=== PATIENT | female | born 1955 | race Caucasian/White ===

== ENCOUNTER 2016-11-07 08:02 | Day surgery (SDC) | payer SELFPAY ==
[~2016-11-07 08:02] MED LIST: Bupivacaine 0.5% 50 ML MDV ONE; Lidocaine 1% with EPINEPHrine 1:100,000 50 ML MDV ONE
[2016-11-07] MEDS ORDERED: Lidocaine 1% 20 ML MDV INJECT ONE (08:15)
[2016-11-07] MEDS ORDERED: Dextrose 5%-Lactated Ringers 1,000 ML IV SCH (08:30)
[2016-11-07] MEDS ORDERED: ceFAZolin 1 GM in Sodium Chloride 0.9% 50 ML IV SCH (10:00)
[2016-11-07] MEDS ORDERED: ceFAZolin 1 GM in Premix Bag 1 BAG IV ONE (10:00)
[2016-11-07] MEDS ORDERED: fentaNYL 100 MCG/2 ML SDV ONE (10:42)
[2016-11-07] MEDS ORDERED: Midazolam 1 MG/ML 2 ML SDV ONE (10:42)
[2016-11-07] MEDS ORDERED: Propofol 200 MG/20 ML SDV ONE ×2 (10:42→12:23)
--- NOTE | 2016-11-07 11:09 | MY ---
EXAM: (Guide Ndl Wire Loc RT) INDICATION: RIGHT BREAST CALCIFCATION R92.01 PROCEDURE: Mammographic guided wire localization of microcalcifications in the 12:00 position of the right breast performed. Procedure and risks discussed with patient agreed to proceed. With the alpha- numeric grid in place in the CC projection the microcalcifications were localized. After sterile prep and local anesthesia localizing needle was placed through the microcalcifications. Satisfactory need le placement was confirmed with a lateral projection view. Localizing wire was then placed and needle removed. The thick portion of the wire is at the microcalcifications. IMPRESSION: Successful mammographically guided wire localization of microcalcifications in the right breast.
[2016-11-07 14:17] VITALS: BP 142/76
--- NOTE | 2016-11-07 14:48 | MY ---
EXAM: (Surgical Specimen Breast) INDICATION: RT BREAST CALCIFICATION, SPECIMEN COMPARISON: Prior studies. FINDINGS: Satisfactory specimen radiograph with microcalcifications and localizing wire centrally wit hin the specimen. Findings were telephoned to the OR by the mammogram technologist.
--- NOTE | 2016-11-13 11:07 | OR ---
DATE OF PROCEDURE: 11/07/2016 PREOPERATIVE DIAGNOSIS: Focal suspicious microcalcifications of right breast. POSTOPERATIVE DIAGNOSIS: Focal suspicious microcalcifications of right breast. PROCEDURE: Excisional biopsy, right breast with preoperative mammographic needle localization ([id number]). ANESTHESIA: Local plus IV sedation. OCULAR PATHOLOGIST: MAXIMO Walker. INDICATION FOR PROCEDURE: This is a 61-year-old female presenting with a newly identified cluster of microcalcifications located in the superior aspect of the right breast. The option of the core biopsy versus a more complete excision of the area, giving this a somewhat more definitive diagnosis, was reviewed with the patient, and she wished to proceed with the excisional approach. Potential risks including bleeding, infection, cosmetic deformity, possible need for additional treatment, if malignancy is identified, were all reviewed with the patient, and she wishes to proceed. DETAILS OF PROCEDURE: The patient was taken to the operating room and placed in a supine position. After successful localization of the area of concern in the right breast, the right breast surrounding these areas were prepped and draped, while the patient received some IV sedation. The optimal point of incision was then identified fluoroscopically and that area was anesthetized with 1% lidocaine mixed with Marcaine. Transversely oriented incision in line with the skin creases was then made and carried down through the skin and subcutaneous tissue. The proximal end of the needle just above the stiffener was then identified and divided, and the tissue around the remaining stiffener needle was then excised and sent for mammographic exam. Adequate removal of the area of calcifications was confirmed. The area of concern was then palpated, and no additional abnormalities were noted. The deep plane of the dissection did not violate the pectoralis major fascia. The incision was then closed with 3-0 and 4-0 Vicryl stitch deep, after hemostasis was obtained, and the skin closed with 4-0 Vicryl subcuticular stitch. Dressing was applied. The patient was taken to the recovery room in satisfactory condition. Nathaniel Loredo MD /[id number]
== END 2016-11-07 14:19 | disposition home or self-care (01) ==
LOC: JP.SDS 08:02
PROVIDERS: ATTEND Surgery
DX: D24.1 Benign neoplasm of right breast (principal)
CPT/HCPCS: 19125; 19281; 76098; 88305; 88342; J2250; J2704; J3010; J7042

== ENCOUNTER 2018-12-01 06:24 | Day surgery (SDC) | payer MEDICARE, BC ==
[2018-12-01] MEDS ORDERED: Bupivacaine 0.5% 30 ML SDV ONE (06:48)
[2018-12-01] MEDS ORDERED: Nozin Nasal Sanitizer NASBOTH ONE (07:00)
[2018-12-01] MEDS ORDERED: Lactated Ringers 1,000 ML IV SCH (07:15)
[2018-12-01] MEDS ORDERED: fentaNYL 100 MCG/2 ML SDV ONE (07:36)
[2018-12-01] MEDS ORDERED: Propofol 200 MG/20 ML SDV ONE (07:36)
[2018-12-01] MEDS ORDERED: Midazolam 1 MG/ML 2 ML SDV ONE (07:36)
[2018-12-01] MEDS: ceFAZolin 1 GM in Premix Bag 1 BAG IV ONE ×2 (08:10→12:12)
[2018-12-01 10:07] VITALS: BP 130/98; PULSE 63
--- NOTE | 2018-12-06 09:33 | OR ---
DATE OF PROCEDURE: 12/01/2018 SURGEON: Brandin Ventura MD PREOPERATIVE DIAGNOSIS: Recurrent left carpal tunnel syndrome. POSTOPERATIVE DIAGNOSIS: Recurrent left carpal tunnel syndrome. PROCEDURE: Left carpal tunnel release. ANESTHESIA: Miki block with sedation. INDICATIONS: Jessie is a very pleasant 63-year-old female with a history of persistent left hand and wrist pain, tingling, and numbness. She has a history of prior carpal tunnel release, but has been experiencing increased symptoms over the past year. Difficulty with cell lead. Pain radiating into the median nerve distribution. Exam with positive Tinel's at the wrist. She now presents for revision, release, and evaluation of the carpal tunnel. Risks, benefits, potential complications of the procedure were discussed. DESCRIPTION OF PROCEDURE: After adequate anesthesia had been obtained, the left hand was prepped and draped in a sterile fashion. Previous incision was noted transversely at the wrist crease. A new incision was made longitudinally from the wrist crease distally in line with the 4th finger. This was carried down through the subcutaneous tissues. Careful dissection was then carried down. A portion of the transverse carpal ligament was encountered. This was very thin, but was intact at this level. This was divided under direct visualization. This was carried down to the level of the wrist crease. A small band at the junction of the transverse ligament and flexor retinaculum was noted. This was divided with the tenotomy scissors. Evaluation of the carpal tunnel contents revealed that the median nerve was significantly compressed throughout the length of the tunnel. Also had the appearance of being is somewhat atrophied. The remainder of the carpal contents were unremarkable. No significant tenosynovitis was noted. There was no extension of flexor muscle into the tunnel. Complete release was confirmed both visually and by palpation proximally and distally. The wound was then irrigated. The skin was then closed using 4-0 nylon in interrupted mattress fashion. Sterile dressing was applied. Skin was infiltrated with Marcaine prior to application of the dressing. She tolerated the procedure well. There were no complications. She was taken from the operating room in stable condition. Brandin Ventura MD /[id number]
== END 2018-12-01 10:25 | disposition home or self-care (01) ==
LOC: JP.SDS 06:24
PROVIDERS: ATTEND Specialist
DX: G56.02 Carpal tunnel syndrome, left upper limb (principal); I10 Essential (primary) hypertension; K21.9 Gastro-esophageal reflux disease without esophagitis; F41.9 Anxiety disorder, unspecified; F32.9 Major depressive disorder, single episode, unspecified
CPT/HCPCS: 36415; 64721; 80048; 85027; A9270; J0690; J2250; J2704; J3010; J3490; J7120

== ENCOUNTER 2020-07-09 21:53 | Emergency (ER) | payer MEDICARE, BC ==
[2020-07-09 22:03] VITALS: BP 113/88; PULSE 93
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
[2020-07-09] MEDS ORDERED: Bacitracin Oint 1 GM U/D Packet TOP ONE (23:43)
[2020-07-09] MEDS ORDERED: Diphtheria,Pertussis(Acell),Tetanus Vaccine 0.5 ML Syringe IM ONE (23:45)
[2020-07-10] MEDS ORDERED: LORazepam 1 MG Tab PO ONE (00:16)
== END 2020-07-10 11:27 | disposition home or self-care (01) ==
LOC: JP.ED 21:53
DX: S61.512A Laceration without foreign body of left wrist, initial encounter (principal); F32.9 Major depressive disorder, single episode, unspecified; Z23 Encounter for immunization; Z79.899 Other long term (current) drug therapy; X78.1XXA Intentional self-harm by knife, initial encounter
CPT/HCPCS: 36415; 80053; 80305; 80307; 84443; 85025; 90471; 90715; 99284; A9270

== ENCOUNTER 2022-08-20 08:39 | Day surgery (SDC) | payer MEDICARE, BC ==
[~2022-08-20 08:39] MED LIST changes: -Bupivacaine 0.5% 50 ML MDV ONE; -Lidocaine 1% with EPINEPHrine 1:100,000 50 ML MDV ONE; +Midazolam 1 MG/ML 2 ML SDV ONE; +Propofol 200 MG/20 ML SDV ONE; +fentaNYL 50 MCG/ML SDV ONE
[2022-08-20] MEDS ORDERED: Bupivacaine 0.5% 30 ML SDV ONE (08:44)
[2022-08-20 09:17] LABS: HEMATOCRIT 45.1 % (34.3-46.0); HEMOGLOBIN 15.3 g/dL (11.2-15.5); MEAN CORPUSCULAR HEMOGLOBIN 33.3 pg (31.6-35.5); MEAN CORPUSCULAR HGB CONC 33.9 g/dL (31.6-35.5); RED BLOOD CELL COUNT 4.6 M/uL (3.77-5.24); WHITE BLOOD CELL COUNT,WBC 12.5 K/uL (3.2-11.0)
[2022-08-20] MEDS ORDERED: Nozin Nasal Sanitizer NASBOTH ONE (09:30)
[2022-08-20] MEDS ORDERED: ceFAZolin 2 GM in Premix Bag 1 BAG IV ONE (09:30)
[2022-08-20] MEDS ORDERED: Lactated Ringers 1,000 ML IV SCH (09:30)
[2022-08-20 09:39] LABS: A/G RATIO 1.1 (1.2-2.2); ALANINE AMINOTRANSFERASE,ALT 42 U/L (12-78); ALKALINE PHOSPHATASE 83 U/L (46-116); ANION GAP 12.7 mmol/L (5.0-14.0); ASPARTATE AMNIOTRANSFERASE,AST 25 U/L (15-37); BILIRUBIN TOTAL 0.5 mg/dL (0.2-1.0); BLOOD UREA NITROGEN,BUN 14 mg/dL (7-18); CALCIUM 9.6 mg/dL (8.5-10.1); CARBON DIOXIDE,CO2 29 mmol/L (21-32); CHLORIDE,CL 101 mmol/L (100-108); CREATININE 0.9 mg/dL (0.6-1.0); EST CRCL DRUG DOSING (CG) 42.97 mL/min; ESTIMATED GFR 70 mL/min (>60); GLUCOSE RANDOM 85 mg/dL (74-106); POTASSIUM,K 3.7 mmol/L (3.6-5.2); PROTEIN TOTAL,TP 7.6 g/dL (6.4-8.2); SODIUM,NA 139 mmol/L (140-148)
[2022-08-20] MEDS ORDERED: fentaNYL 100 MCG/2 ML SDV ONE (12:22)
[2022-08-20] MEDS ORDERED: Lactated Ringers 1,000 ML ONE (13:01)
[2022-08-20] MEDS ORDERED: Propofol 200 MG/20 ML SDV ONE (13:02)
[2022-08-20 15:37] VITALS: BP 142/72; PULSE 60
== END 2022-08-20 16:12 | disposition home or self-care (01) ==
LOC: JP.SDS 08:39
PROVIDERS: ATTEND Specialist
DX: S46.012A Strain of muscle(s) and tendon(s) of the rotator cuff of left shoulder, initial encounter (principal); M75.02 Adhesive capsulitis of left shoulder; I10 Essential (primary) hypertension; F32.A Depression, unspecified; F41.9 Anxiety disorder, unspecified; F17.200 Nicotine dependence, unspecified, uncomplicated
CPT/HCPCS: 29827; 36415; 80053; 85027; A9270; C1713; J2250; J2704; J3010; J3490; J7120

== ENCOUNTER 2023-09-06 17:40 | Emergency (ER) | payer MEDICARE, BC ==
[2023-09-06 18:26] LABS: BASOPHILS ABSOLUTE AUTO 0.08 K/uL (0.00-0.10); BASOPHILS PERCENT AUTO 0.6 % (0.1-1.3); EOSINOPHILS ABSOLUTE AUTO 0.08 K/uL (0.00-0.40); EOSINOPHILS PERCENT AUTO 0.6 % (0.0-5.4); HEMATOCRIT 47.2 % (34.3-46.0); HEMOGLOBIN 16.9 g/dL (11.2-15.5); IMMATURE GRAN ABSOLUTE AUTO 0.03 K/uL (0.00-0.23); IMMATURE GRAN PERCENT AUTO 0.2 % (0.0-0.7); LYMPHOCYTES PERCENT AUTO 17.4 % (11.4-47.7); MEAN CORPUSCULAR HGB CONC 35.8 g/dL (31.6-35.5); MONOCYTES PERCENT AUTO 7.6 % (3.3-12.6); NEUTROPHILS ABSOLUTE AUTO 9.72 K/uL (1.0-7.6); NEUTROPHILS PERCENT AUTO 73.6 % (40.0-78.1); PLATELET COUNT,PLT 371 K/uL (130-375); RED BLOOD CELL COUNT 4.97 M/uL (3.77-5.24); WHITE BLOOD CELL COUNT,WBC 13.2 K/uL (3.2-11.0)
[2023-09-06 18:29] LABS: BLOOD UREA NITROGEN,BUN 9 mg/dL (7-18); EST CRCL DRUG DOSING (CG) 47.67 mL/min; ESTIMATED GFR 80 mL/min (>60)
[2023-09-06 19:03] LABS: CARBON DIOXIDE,CO2 26 mmol/L (21-32); CREATININE 0.8 mg/dL (0.6-1.0); GLUCOSE RANDOM 98 mg/dL (74-106)
[2023-09-06 19:05] LABS: POTASSIUM,K 4.1 mmol/L (3.6-5.2); SODIUM,NA 135 mmol/L (140-148)
[2023-09-06 19:06] LABS: TROPONIN I HIGH SENSITIVITY 13065.6 pg/mL (<=60.3)
[2023-09-06] MEDS: hydrALAZINE 20 MG/ML SDV IVPUSH ONE (19:12)
[2023-09-06] MEDS ORDERED: Naloxone 0.4 MG/ML SDV IVPUSH PRN (19:24)
[2023-09-06] MEDS: Morphine 2 MG/ML SYRINGE IVPUSH ONE (19:28)
[2023-09-06] MEDS: Clopidogrel 75 MG Tab PO ONE (19:32)
[2023-09-06] MEDS: Aspirin 81 MG Tab.Chew PO ONE (19:32)
[2023-09-06] MEDS: Heparin Sodium/D5W 25,000 UNITS/500 ML BAG IV SCH (19:35)
[2023-09-06] MEDS: Heparin Sodium 5,000 Units/ML Vial IVPUSH ONE (19:40)
[2023-09-06] MEDS: Ondansetron 4 MG/2 ML SDV IVPUSH ONE (19:43)
[2023-09-06 20:47] VITALS: BP 168/96; PULSE 65
== END 2023-09-06 21:00 | disposition other institution (70) ==
LOC: JP.ED 17:40
DX: I21.3 ST elevation (STEMI) myocardial infarction of unspecified site (principal); I10 Essential (primary) hypertension; F17.210 Nicotine dependence, cigarettes, uncomplicated; Z90.710 Acquired absence of both cervix and uterus; Z79.899 Other long term (current) drug therapy
CPT/HCPCS: 36415; 70450; 80048; 84484; 85025; 93005; 96365; 96375; 99285; A9270; J0360; J1644; J2270; J2405